=== PATIENT | female | born 1980 | race Caucasian/White ===

== ENCOUNTER 2017-05-02 15:41 | Emergency (ER) | payer BC ==
--- NOTE | 2017-05-02 16:09 | EDPHY ---
DUNCAN Addendum - Addendum .: I did not see this patient.
== END 2017-05-02 15:50 | disposition left against medical advice (07) ==
LOC: CED 15:41
DX: Z53.21 Procedure and treatment not carried out due to patient leaving prior to being seen by health care provider (principal)

== ENCOUNTER → 2018-03-23 | Outpatient (CLI) | payer BC, OTHER | LOC: FIMAGING 11:13 | PROVIDERS: ATTEND Dentist Oral and Maxillofacial Surgery | DX: M26.623 Arthralgia of bilateral temporomandibular joint (principal); M26.633 Articular disc disorder of bilateral temporomandibular joint; M26.69 Other specified disorders of temporomandibular joint ==

== ENCOUNTER → 2018-06-30 | Outpatient (CLI) | payer BC, OTHER | LOC: FCPNEURO 20:00 | PROVIDERS: ATTEND Psychiatry & Neurology Sleep Medicine | DX: G47.11 Idiopathic hypersomnia with long sleep time (principal) ==